=== PATIENT | male | born 1970 ===

== ENCOUNTER 2025-07-02 10:12 | Outpatient (AMB) | payer MEDICARE, MEDICAID, SELFPAY ==
--- NOTE | 2025-07-02 10:00 | A.OFFPC_ITS ---
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 Seasoning Mixer Required: No Accompanied by: Self / Same As Patient Allergies No Known Allergies Allergy (Verified 07/02/25 10:00) Medication List - Last Reconciled 07/02/25 by Catrachito Hou MD omeprazole 20 mg PO BID simvastatin 40 mg PO BEDTIME Tobacco use date assessed: 07/02/25 Dental Screening Dental Screen Date: 07/02/25 Did you have a dental visit in the last 12 months?: Yes Did you have a dental problem in the last 6 months where you did not have access to dental care?: No Was dental information given to patient?: Patient has dentist HPI HPI Comments History of Present Illness Details History of Present Illness The patient is a 55-year-old male presenting for a general health check-up and establishing care Scoliosis: - The patient reports having scoliosis b ut has not received treatment as it does not currently bother him. Earwax accumulation: - The patient has significant earwax acc umulation in the left ear, for which ear drops have been recommended. Abdominal hernia: - The patient has a history of an abdomi nal hernia, which was surgically repaired. Review of Systems - Musculoskeletal: Reports scoliosis, de nies current pain or discomfort. - Ears: Reports earwax accumulation in t he left ear. - Gastrointestinal: Denies current abdom inal pain, reports history of hernia repair. - Social: Denies smoking, occasional alc ohol consumption, denies drug use. 10-point ROS reviewed and negative excep t as noted in HPI Past Medical History - Scoliosis - Abdominal hernia repair Health Maintenance - Referral to visitor services associate for foot evalua tion - Referral to director phone for dietary g uidance - Blood tests ordered for general health assessment Physical Exam General: Well-appearing, in no acute distress. Vital signs: Within normal limits. HEENT: Normocephalic, atraumatic. PERRLA, EOMI. Conjunctiva clear, sclera anicteric. Oropharynx clear, mucous membranes moist. TMs intact bilaterally, but patient has significant earwax in the left ear. Neck: Supple, no lymphadenopathy, no thyromegaly, no JVD or carotid bruits. Cardiovascular: RRR, normal S1/S2, no murmurs, rubs, or gallops. Peripheral pulses 2+ and symmetric. No edema. Respiratory: Lungs clear to auscultation bilaterally, no wheezes, rales, or rhonchi. Normal effort. Abdomen: Soft, non-tender, non-distended. Normoactive bowel sounds. No hepatosplenomegaly, no masses. History of abdominal hernia surgery. MSK: Full range of motion, no joint swelling or deformity. Normal gait. Patient reports scoliosis but no current treatment. Skin: Warm, dry, intact. No rashes, lesions, or pallor. Neuro: Alert and oriented x3. Cranial nerves II-XII intact. Strength 5/5 throughout. Sensation intact. Reflexes 2+ symmetric. Normal coordination and gait. Psych: Appropriate mood and affect. Normal judgment and insight. Plan 1. Scoliosis - No immediate intervention required as the patient reports no current discomfort. 2. Earwax Accumulation - Prescribed ear drops to be used twice daily for the left ear, follow-up in two weeks to reassess. 3. Abdominal Hernia - No current issues reported, continue m onitoring for any symptoms. 4. Preventative Care - Blood tests ordered to assess overall health status. - Referrals provided for podiatry and nu tritionist consultations. Discussion Notes I discussed with the patient the importance of addressing the earwax accumulation with prescribed ear drops and the need for follow-up in two weeks. We also talked about the referrals to a visitor services associate and director phone to support his overall health maintenance. Blood tests were ordered to evaluate his general health status. Patient was informed and verbally consented to the use of an ambient scribe for clinic note documentation during this visit. Patient Instructions - Use ear drops in the left ear twice da junior. - Schedule and attend appointments with the visitor services associate and director phone. - Return for follow-up in two weeks for ear examination. - Complete blood tests as ordered. [facility] Medical History (Updated 07/02/25 @ 10:35 by Catrachito Hou MD) Overlapping toe Diabetes type 2 Family History (Updated 07/02/25 @ 10:21 by Crystal Flores MA) Father No problems noted. Mother Diabetes Alzheimer dementia Social History (Updated 07/02/25 @ 10:02 by Crystal Flores MA) Housing: Apartment Alcohol intake: current Alcohol intake frequency: does not drink Patient Tobacco Use Status: Never used Tobacco service: No Current occupational status: disabled Cognitive needs: No Hearing needs: No Vision needs: Yes (rx glasses) Questionnaire PHQ-9 Over the last 2 weeks, how often have you been bothered by any of the following problems? 1. Little interest or pleasure in doing things: not at all 2. Feeling down, depressed, or hopeless: not at all 3. Trouble falling or staying asleep, or sleeping too much: not at all 4. Feeling tired or having little energy: not at all 5. Poor appetite or overeating: not at all 6. Feeling bad about yourself - or that you are a failure or have let yourself or your family down: not at all 7. Trouble concentrating on things, such as reading the newspaper or watching television: not at all 8. Moving or speaking so slowly that other people could have noticed. Or the opposite - being so fidgety or restless that you have been moving around a lot more than usual: not at all 9. Thoughts that you would be better off or of hurting yourself in some way: not at all Total score: 0 Source: Developed by Drs. Jase Burgos, Marietta Cantu, Gus Bhagat and colleagues, with an educational ciara from [employer]. Thrive Questionnaire Date Thrive assessed: 07/02/25 I am a: Patient What is your living situation today?: I have a steady place to live Within the past 12 months, did the food you bought not last and you didn't have the money to get more?: Never true Within the past 12 months, did you worry whether your food would run out before you got money to buy more?: Never true Do you have trouble paying for medicines?: No Do you have trouble getting transportation to medical appointments?: No Do you have trouble paying your heating and electricity bill?: No Do you have trouble taking care of your child, family member or friend?: No Do you have trouble with day-to-day activities such as bathing, preparing meals, shopping, managing finances, etc.?: No Are you currently unemployed and looking for a job?: No Are you interested in more education?: No Please select the resources that you would like help with: None Currently or been in a relationship where the following occur: No concerns reported THRIVE Score: 0 AUDIT C Alcohol Use Questionnaire (AUDIT-C) 1. How often do you have a drink containing alcohol?: Never 3. How often do you have six or more drinks on one occasion?: Never Total Score: 0 PARUL-7 AMB Questionnaire PARUL-7 Date PARUL - 7 assessed: 07/02/25 Feeling nervous, anxious, or on edge: 0 = Not at all Not being able to stop or control worryin = Not at all Worrying too much about different things: 0 = Not at all Trouble relaxin = Not at all Being so restless that it is hard to sit still: 0 = Not at all Becoming easily annoyed or irritable: 0 = Not at all Feeling afraid as if something awful might happen: 0 = Not at all Total PARUL-7 score (0-4 normal; 5-9 mild; 10-14 moderate; 15-21 severe): 0 Source: Developed by Drs. Jase Burgos, Marietta Cantu, Gus Bhagat and colleagues, with an educational ciara from [employer]. Physical exam (Primary Care) Tobacco/Smoking Status: Tobacco use Status Tobacco use date assessed 07/02/25 07/02/25 10:02 Patient Tobacco Use Status Never used Tobacco 07/02/25 10:02 Thrive Assessment: Date of Thrive Assessment Date Thrive assessed 07/02/25 07/02/25 10:13 Currently or been in a relationship where the following occur: No concerns reported Coding Level of Care Code New Pt Level 3 (19802) Diagnoses Encounter to establish care Z76.89 Encounter for screening, unspecified Z13.9 Counseling, unspecified Z71.9 Screening for diabetes mellitus Z13.1 Screening for lipoid disorders Z13.220 Screening for hypertension Z13.6 Screening for depression Z13.31 Routine screening for STI (sexually transmitted infection) Z11.3 Screening for HIV (human immunodeficiency virus) Z11.4 Elevated blood pressure reading R03.0 Class 1 obesity E66.811 Overlapping toe M20.5X9 Cerumen impaction H61.20 Assessment & Plan Assessment & Plan (1) Encounter to establish care: Code(s): Z76.89 - Persons encountering health services in other specified circumstances (2) Encounter for screening, unspecified: Code(s): Z13.9 - Encounter for screening, unspecified (3) Counseling, unspecified: Code(s): Z71.9 - Counseling, unspecified (4) Screening for diabetes mellitus: Code(s): Z13.1 - Encounter for screening for diabetes mellitus (5) Screening for lipoid disorders: Code(s): Z13.220 - Encounter for screening for lipoid disorders (6) Screening for hypertension: Code(s): Z13.6 - Encounter for screening for cardiovascular disorders (7) Screening for depression: Code(s): Z13.31 - Encounter for screening for depression (8) Routine screening for STI (sexually transmitted infection): Code(s): Z11.3 - Encounter for screening for infections with a predominantly sexual mode of transmission (9) Screening for HIV (human immunodeficiency virus): Code(s): Z11.4 - Encounter for screening for human immunodeficiency virus [HIV] (10) Elevated blood pressure reading: Code(s): R03.0 - Elevated blood-pressure reading, without diagnosis of hypertension (11) Class 1 obesity: Code(s): E66.811 - Obesity, class 1 (12) Overlapping toe: Code(s): M20.5X9 - Other deformities of toe(s) (acquired), unspecified foot Category: Medical (13) Cerumen impaction: Code(s): H61.20 - Impacted cerumen, unspecified ear Plan Orders: Orders Comprehensive Met. Panel Today Z13.9 - Encounter for screening, unspecified, Z76.89 - Persons encountering health services in other specified circumstances Hepatitis C Antibody Today Z13.9 - Encounter for screening, unspecified, Z76.89 - Persons encountering health services in other specified circumstances Vitamin B12 and Folate Today Z13.9 - Encounter for screening, unspecified, Z76.89 - Persons encountering health services in other specified circumstances Vitamin D 1,25 dihydroxy Today Z13.9 - Encounter for screening, unspecified, Z76.89 - Persons encountering health services in other specified circumstances Microalbumin, Random (w Creat) Today Z13.9 - Encounter for screening, unspecified, Z76.89 - Persons encountering health services in other specified circumstances Chlamydia Species Ab Panel Today Z13.9 - Encounter for screening, unspecified, Z76.89 - Persons encountering health services in other specified circumstances Complete Blood Count Auto Diff Today Z13.9 - Encounter for screening, unspecified, Z76.89 - Persons encountering health services in other specified circumstances Hemoglobin A1c Today Z13.9 - Encounter for screening, unspecified, Z76.89 - Persons encountering health services in other specified circumstances Hepatitis B Surface Antibody Today Z13.9 - Encounter for screening, unspecified, Z76.89 - Persons encountering health services in other specified circumstances Hepatitis B Surface Antigen Today Z13.9 - Encounter for screening, unspecified, Z76.89 - Persons encountering health services in other specified circumstances HIV Ab/Ag Today Z13.9 - Encounter for screening, unspecified, Z76.89 - Persons encountering health services in other specified circumstances Lipid Panel Today Z13.9 - Encounter for screening, unspecified, Z76.89 - Persons encountering health services in other specified circumstances Magnesium Today Z13.9 - Encounter for screening, unspecified, Z76.89 - Persons encountering health services in other specified circumstances UA CC w/rflx Micro + Cult Today Z13.9 - Encounter for screening, unspecified, Z76.89 - Persons encountering health services in other specified circumstances CT NG by PCR Urine Today Z13.9 - Encounter for screening, unspecified, Z76.89 - Persons encountering health services in other specified circumstances Syphilis Screen Today Z13.9 - Encounter for screening, unspecified, Z76.89 - Persons encountering health services in other specified circumstances Referrals Nurse Navigator Referral E11.9 - Type 2 diabetes mellitus without complications, Z13.9 - Encounter for screening, unspecified Ophthalmology Referral E11.9 - Type 2 diabetes mellitus without complications, Z13.9 - Encounter for screening, unspecified Nutrition/Dietitian Referral E66.811 - Obesity, class 1 Podiatry Referral M20.5X9 - Other deformities of toe(s) (acquired), unspecified foot Nutrition/Dietitian Referral E11.9 - Type 2 diabetes mellitus without complications, Z13.9 - Encounter for screening, unspecified Medications: New carbamide peroxide 6.5% (Debrox) 5 drps otic (ears) Q12H 15 mL 0RF 4 days
[2025-07-02 10:16] VITALS: BP 136/86; PULSE 83; RESP 16; TEMP 36.6; O2SAT 98; BMI 31.1
--- OUTSIDE RECORDS SUMMARY | 2025-07-02 11:37 | XMS_ITS | Clinical Summary ---
Author Organization [facility] Address [address] [place] [address] Care Team Providers Care Audit Specialist Name Role Phone Toro Hernandez MD Primary Care Provider Unavaila ble Social History Tobacco Use Types Packs/Day Years Used Date Smoking Tobacco: Never Smokeless Tobacco: Never Alcohol Use Standard Drinks/Week Comments Yes 0 (1 standard drink = 0.6 oz pur e alcohol) Sex and Gender Information Value Date Recorded Sex Assigned at Not on file Legal Sex Male 7:32 PM EST Gender Identity Not on file Sexual Orientation Not on file Obstetrics History Last Filed Vital Signs Vital Sign Reading Time Taken Comments Blood Pressure 112/77 08/20/2023 8:11 AM EST Pulse 85 08/20/2023 8:11 AM EST Temperature - - Respiratory Rate - - Oxygen Saturation - - Inhaled Oxygen Concentration - - Weight 81.6 kg (179 lb 12.8 oz) 08/20/2023 8:11 AM EST Height 167.6 cm (5' 6 ) 08/20/2023 8:11 AM EST Body Mass Index 29.02 08/20/2023 8:11 AM EST Plan of Treatment Health Maintenance Due Date Last Done Comments Colorectal Cancer Screening: Colonoscopy 1969 DTaP,Tdap,and Td Vaccines (1 - Tdap) 1988 Hepatitis B Vaccines (1 of 3 - 19+ 3-dose series) 1988 Pneumococcal Vaccine: 50+ Ye ars (1 of 1 - PCV) 2019 Zoster Vaccines (1 of 2) 2019 Cholesterol Screening (Lipid Panel) 09/02/2022 HIV Screening 09/02/2022 Hepatitis C Screening 09/02/2022 Social Influencers of Health Screening 09/02/2022 Depression Screening 10/01/2024 COVID-19 Vaccine (1 - 4-2 5 season) 2025 Influenza Vaccine (#1) 2025 RSV Immunization Adult Patie nts (1 - 1-dose 75+ series) 2044 HIB Vaccines Aged Out No longer eligi ble based on patient's age to complete this topic HPV Vaccines Aged Out No longer eligi ble based on patient's age to complete this topic Hepatitis A Vaccines Aged Out No long er eligible based on patient's age to complete this topic IPV Vaccines Aged Out No longer eligi ble based on patient's age to complete this topic MMR Vaccines Aged Out No longer eligi ble based on patient's age to complete this topic Meningococcal ACWY Vaccine Aged Out N o longer eligible based on patient's age to complete this topic Meningococcal B Vaccine Aged Out No l onger eligible based on patient's age to complete this topic RSV Immunization Patients Un juan 20 months Aged Out No longer eligible b ased on patient's age to complete this topic Varicella Vaccines Aged Out No longer eligible based on patient's age to complete this topic Care Teams Audit Specialist Relationship Specialty Start Date End Date Toro Hernandez MD PCP - General 10/07/03
== END 2025-07-02 10:42 | disposition home or self-care (01) ==
LOC: HO.HMCFMS 10:13
PROVIDERS: PCP Student in an Organized Health Care Education/Training Program; Visit Provider Student in an Organized Health Care Education/Training Program
DX: H61.22 Impacted cerumen, left ear (principal); E66.811 Obesity, class 1; Z68.31 Body mass index [BMI] 31.0-31.9, adult; M20.5X9 Other deformities of toe(s) (acquired), unspecified foot

== ENCOUNTER → 2025-07-02 10:12 | Outpatient (BNVA) | payer MEDICARE, MEDICAID, SELFPAY | PROVIDERS: Visit Provider Student in an Organized Health Care Education/Training Program | DX: Z76.89 Persons encountering health services in other specified circumstances (principal); R03.0 Elevated blood-pressure reading, without diagnosis of hypertension; E66.811 Obesity, class 1; Z68.31 Body mass index [BMI] 31.0-31.9, adult; M20.5X9 Other deformities of toe(s) (acquired), unspecified foot; H61.22 Impacted cerumen, left ear; M41.9 Scoliosis, unspecified; E11.9 Type 2 diabetes mellitus without complications; Z71.9 Counseling, unspecified; Z13.30 Encounter for screening examination for mental health and behavioral disorders, unspecified; Z13.39 Encounter for screening examination for other mental health and behavioral disorders | CPT/HCPCS: 96127; 99202 ==

== ENCOUNTER 2025-07-03 11:40 | Outpatient (REF) | payer MEDICARE, MEDICAID, SELFPAY ==
--- OUTSIDE RECORDS SUMMARY | 2025-07-03 12:50 | XMS_ITS | Clinical Summary ---
[facility] Organization [facility] [address] [place] [address] Care Team Providers Care Maintenance Journeyman Name Role Phone Toro Hernandez MD Primary [...] age to complete this topic Care Teams Maintenance Journeyman Relationship Specialty Start Date End Date Toro Hernandez MD PCP - General 10/07/03
--- OUTSIDE RECORDS SUMMARY | 2025-07-03 12:50 | XMS_ITS | Clinical Summary ---
Author Organization [facility] Address [address] [place] [address] Care Team Providers Care Industrial Truck Operator Name Role Phone Laurel Hawkins PA-C Primary Care Provider [phone]- [phone] Source Comments PLEASE NOTE, if this patient is a minor, it may be UNLAWFUL to discuss sensitive information that is contained in these records (such as FAMILY PLANNING, MENTAL HEALTH or SUBSTANCE ABUSE) with the minor patient's parent or other person without the patient's specific authorization.[facility] Allergies No known active allergies Medications omeprazole (PRILOSEC) [address] capsuleIndicati ons:Dyspepsia TAKE 1 CAPSULE BY MOUTH TWICE A DAY 180 Capsule 1 03/02/2025 Active simvastatin (ZOCOR) 40 mg tabletIndicatio ns:Dyslipidemia TAKE 1 TABLET BY MOUTH EVERYDAY AT BEDTIME 90 Tablet 1 03/02/2025 Active Active Problems Problem Noted Date Diagnosed Date Retained ureteral stent 01/04/2019 Overview (01/04/2019): 01/01/19 Presented to [facility] OR With right sujit pain and stone in proximal right ureter Right renal mass 09/10/2018 Overview (09/10/2018): Found on CT of abdomen done on 08/04/18 - 1.8cm indeterminate right renal mass - needs u/s to follow up Acute appendicitis 02/01/2018 Overview (02/07/2018): [facility] to [facility] on 01/27/2018: Pre op done on 01/27/2018: going to operating room for possible appendectomy and hernia repair. Has some fluid collection after surgery. Cant exclude infection. Benign non-nodular prostatic hyperplasia with lower urinary tract symptoms 11/14/2015 Overview (11/14/2015): Seen by [facility] group of [facility] Dr Dominick Segovia GERD (gastroesophageal reflux disease) Vitamin D deficiency Diverticulitis Immunizations Immunization Administration Dates Next Due Flu, Preservative Free 10/03/2018,07/02/2017, INFLUENZA, SEASONAL, INJECTABLE 07/02/2017 TDAP 09/22/2016 Family History Medical History Relation Name Comments Diabetes Maternal Uncle Diabetes Mother Relation Name Status Comments Father Alive Maternal Uncle Mother Alive Social History Tobacco Use Types Packs/Day Years Used Date Smoking Tobacco: Never Smokeless Tobacco: Never Alcohol Use Standard Drinks/Week Comments Yes 8.3 (1 standard drink = 0.6 oz p ure alcohol) ocasional Social Connections Answer Date Recorded Connectedness 0 06/18/2024 Financial Resource Strain Answer Date R ecorded Financial Resource Strain 0 2018 Stress Answer Date Recorded Stress 0 05/24/2019 Physical Activity Answer Date Recorded Physical Activity 0 05/24/2019 Food Insecurity Answer Date Recorded Food 0 06/26/2024 Transportation Needs Answer Date Record ed Transportation 0 05/24/2019 Housing Stability Answer Date Recorded Housing 0 05/24/2019 Safety and Environment Answer Date Yeison rded Safety 0 05/24/2019 Utilities Answer Date Recorded Utilities 0 05/24/2019 Employment Answer Date Recorded Stress 0 06/18/2024 Sex and Gender Information Value Date Recorded Sex Assigned at Male 10/03/2018 12:06 PM PST Legal Sex Male 11:36 AM PDT Gender Identity Male 10/03/2018 12:06 PM PST Sexual Orientation Straight 10/03/2018 12 :06 PM PST Last Filed Vital Signs Vital Sign Reading Time Taken Comments Blood Pressure 132/70 10/03/2018 3:05 PM EST Pulse 76 10/03/2018 3:05 PM EST Temperature 36.8 C (98.3 F) 10/03/2018 3:05 PM EST Respiratory Rate 16 10/03/2018 3:05 PM EST Oxygen Saturation 96% 01/06/2016 3:55 PM EDT Inhaled Oxygen Concentration - - Weight 72.6 kg (160 lb) 10/03/2018 3:05 PM EST Height 170 cm (5' 6.93 ) 10/03/2018 3:05 PM EST Body Mass Index 25.11 10/03/2018 3:05 PM EST Plan of Treatment Health Maintenance Due Date Last Done Comments Anxiety Screening 1969 Hepatitis C Screening 1969 Tobacco Screening 1969 Medicare Annual Wellness Visit 1987 Imm-Hepatitis B (1 of 3 - 19 + 3-dose series) 1988 CT Colonography 2014 Colonoscopy 2014 Colorectal Cancer Screening 2014 FIT/gFOBT 2014 Fecal DNA 2014 Flexible Sigmoidoscopy 2014 Imm-Pneumococcal 50+ (1 of 1 - PCV) 2019 Imm-Zoster, Recombinant (1 of 2) 2019 Hypertension Screening (#1) 10/03/2019 10/03/2018 Lipid Screening 10/03/2019 10/03/2018, 06/0 06/2016, 11/03/2015, Additional history exists Diabetes Screening 10/03/2021 10/03/2018, 0 10/03/2018, 11/03/2015, Additional history exists Alcohol and Drug Screen 10/01/2024 10/03/19 19, 10/03/2018, 11/02/2015, Additional history exists Depression Annual Screen 10/01/2024 019, 11/02/2015, 05/21/2014 (Declined) [id number] ( season) 2025 021 Imm-Influenza (#1) 2025 10/03/2018, 1 , 07/02/2017, Additional history exists Imm-DTaP/Tdap/Td (2 - Td or Tdap) 09/22/2026 016 HIV Screening Completed 10/03/2018 Procedures Procedure Name Priority Date/Time Associated Diagnosis Comments ANTIBODY HIV-1&HIV-2 SINGLE RESULT Routine 10/03/2018 4:06 PM EST Encounter for general adult medical examination with abnormal findings COMPREHENSIVE METABOLIC PANEL Routine 10/03/2018 4:06 PM EST Encounter for general adult medical examination with abnormal findings LIPID PANEL Routine 10/03/2018 4:06 PM EST Encounter for general adult medical examination with abnormal findings from Last 3 Months or Most Recently Relevant to Health Maintenance Results * HIV-1 & HIV-2 ANTIBODIES (10/03/2018 4:06 PM EST) Pathologist [facility] HIV 1 AND 2 ANTIBODY SCREEN NEGATIVE NEGATIVE [facility] Comment: This assay is a 4th generation assay allowing for earlier detection of HIV infection by detecting the presence of the HIV-1 p24 antigen as well as the traditional antibodies to HIV type 1 (including group O) and type 2. Use of a 4th generation assay is the current CDC recommendation for HIV screening. Blood specimen (specimen) Blood / Unknown 10/03/2018 4:06 PM EST 10/03/2018 4:11 PM EST [facility] - 10/03/2018 8:39 PM JO ANN [employer], [place] [address] Cereal Miller - Sara Gutierrez MD [place] [id number] ORD# [id number] Og Downs PA-C LAB - [place] [address], * (ABNORMAL) LIPID PANEL (10/03/2018 4:06 PM EST) [facility] CHOLESTEROL 184 0 - 200 mg/dL [facility] TRIGLYCERIDES 109 0 - 150 mg/dL [facility] HDL CHOLESTEROL 39(L) >40 mg/dL [facility] LDL CALCULATED 124(H) 0 - 100 mg/dL [facility] TC-HDLC RATIO 4.7(H) 0 - 4.4 mg/dL [facility] Blood specimen (specimen) Blood / Unknown 10/03/2018 4:06 PM EST 10/03/2018 4:11 PM EST [facility] - 10/03/2018 7:50 PM EST [employer], a member of [address] [address] Cereal Miller - Sara Gutierrez MD PT ID [id number] ORD# [id number] Og Yareli PANG LAB - BLOOD DRAW Final Result [facility] [address] [place] [address], * COMPRE METAB PANEL (CMP) (10/03/2018 4:06 PM EST) GLUCOSE 93 70 - 100 mg/dL [facility] Comment:Reference range appl icable to fasting specimens only BUN 16 5 - 25 mg/dL [facility] CREAT 0.76 0.7 - 1.3 mg/dL [facility] GLOMERULAR FILTRATION RATE > 60 [facility] Comment: If patient is -Ugandan, multiply result by 1.21 Chronic Kidney Disease: < 60 ml/min/1.73 square meters Kidney Failure: < 15 ml/min/1.73 square meters SODIUM 141 133 - 145 mmol/L [facility] POTASSIUM 3.6 3.5 - 5.5 mmol/L [facility] CHLORIDE 109 96 - 110 mmol/L [facility] CO2 24 21 - 32 mmol/L [facility] ANION GAP 8 3 - 11 [facility] CALCIUM 8.9 8.5 - 10.5 mg/dL [facility] TOTAL PROTEIN 7.9 6.0 - 8.0 G/dL [facility] ALBUMIN 3.9 3.2 - 5.0 G/dL [facility] BILI, TOTAL 0.5 0.0 - 1.4 mg/dL [facility] SGOT 12 10 - 42 U/L [facility] SGPT 29 10 - 60 U/L [facility] ALK PHOS 93 42 - 121 U/L [facility] Blood specimen (specimen) Blood / Unknown 10/03/2018 4:06 PM EST 10/03/2018 4:11 PM EST Narrative [facility] - 10/03/2018 7:50 PM EST [employer], a member of [address] [address] Cereal Miller - Sara Gutierrez MD [place] [id number] ORD# [id number] Og Downs PA-C LAB - BLOOD DRAW Final Result Performing Organization Address City/State/[facility] Co de Phone Number [facility] [address] [place] [address], from Last 3 Months or Most Recently Relevant to Health Maintenance [place] Care Teams Industrial Truck Operator Relationship Specialty Start Date End Date Laurel Hawkins PA-C [address] [place] [address] PCP - General Internal Medicine 07/19/21
[2025-07-03 18:27] LABS: MANUAL DIFF FLAG NO
[2025-07-03 18:42] LABS: Hematocrit 44.0 % (42.0-52.0); Hemoglobin 14.7 g/dl (14.0-18.0); Imm Gran Abs Auto 0.01 X10*3/uL (0.00-0.03); Imm Gran Pct Auto 0.2 % (0.0-0.4); Lymphocytes Absolute Auto 2.2 X10*3/uL (1.2-4.9); Mean Corpuscular HGB Conc 33.4 g/dl (31.0-36.0); Mean Corpuscular Hemoglobin 29.6 pg (27.0-33.0); Mean Corpuscular Volume 88.5 fL (80.0-98.0); NRBC Abs Auto 0.000 X10*3/uL (0.0-0.012); NRBC Pct Auto 0.0 /100WBC (0.0-0.2); Platelet Count 167 X10*3/uL (160-400); Red Blood Count 4.97 X10*6/uL (4.60-5.80); White Blood Count 6.5 X10*3/uL (4.8-10.8)
[2025-07-03 18:43] LABS: Alanine Aminotransferase 36 U/L (0-40); Albumin Level 4.2 g/dL (3.5-5.0); Alkaline Phosphatase 84 U/L (39-117); Anion Gap 12 (12-20); Aspartate Amino Transferase 31 U/L (5-37); Blood Urea Nitrogen 14 mg/dL (9-16); Calcium 9.0 mg/dL (8.4-10.2); Carbon Dioxide 23 mmol/L (22-29); Chloride 110 mmol/L (96-108); Cholesterol 129 mg/dL (<200); Estimated Glomerular Filt Rate > 60; HDL Cholesterol 36 mg/dL (>40); Magnesium 2.3 mg/dL (1.6-2.6); Potassium 3.9 mmol/L (3.3-5.1); Sodium 141 mmol/L (135-145); Total Protein 7.7 g/dL (6.5-8.0); Triglycerides 105 mg/dL (<150)
[2025-07-03 19:19] LABS: Folate 9.0 ng/mL (> or = 4.0); Vitamin B12 200 pg/mL (200-900)
[2025-07-04 03:57] LABS: Syphilis Screen Nonreactive (Nonreactive)
[2025-07-04 04:25] LABS: HBS Num1 1.15 mIU/mL (0-7.99); HBsAGNum1 0.33 S/CO (0.00-0.99); HIV Num 1 0.06 S/CO (0.00-0.99); Hepatitis B Surface Antigen Negative (Negative); ~HepC Num1 0.14 S/CO (0.00-0.79); ~Hepatitis B Surface Antibody NONREACTIVE (Nonreactive); ~Hepatitis C Antibody Nonreactive (Nonreactive)
[2025-07-10 13:48] LABS: VITAMIN D (1,25 OH) D3 64 pg/mL; Vit D (1,25-Dihydroxy) Total 64 pg/mL (18-72); Vitamin D (1,25 OH) D2 <8 pg/mL
[2025-07-12 07:28] LABS: Chlamydia Trachomatis IgA <1:16 titer (<1:16)
== END 2025-07-03 11:41 | disposition home or self-care (01) ==
LOC: HO.HKASLDS 11:40
PROVIDERS: PCP Student in an Organized Health Care Education/Training Program; Visit Provider Student in an Organized Health Care Education/Training Program
DX: Z76.89 Persons encountering health services in other specified circumstances (principal); Z13.89 Encounter for screening for other disorder; Z11.4 Encounter for screening for human immunodeficiency virus [HIV]; Z20.2 Contact with and (suspected) exposure to infections with a predominantly sexual mode of transmission; Z13.1 Encounter for screening for diabetes mellitus; Z13.6 Encounter for screening for cardiovascular disorders; Z01.84 Encounter for antibody response examination
CPT/HCPCS: 36415; 80053; 80061; 82607; 82652; 82746; 83036; 83735; 85025; 86631; 86632; 86706; 86780; 86803; 87340; 87389

== ENCOUNTER 2025-07-16 13:09 | Outpatient (AMB) | payer MEDICARE, MEDICAID, SELFPAY ==
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
[2025-07-16 13:15] VITALS: BP 139/85; PULSE 85; RESP 16; TEMP 36.8; O2SAT 92; BMI 31.3
--- OUTSIDE RECORDS SUMMARY | 2025-07-16 16:28 | XMS_ITS | Clinical Summary ---
Author Organization [facility] ity Address [address] [place] [address] Care Team Providers Care Cold Press Operator Name Role Phone Toro Hernandez MD Primary [...] age to complete this topic Care Teams Cold Press Operator Relationship Specialty Start Date End Date Toro Hernandez MD PCP - General 10/07/03
== END 2025-07-16 13:41 | disposition home or self-care (01) ==
LOC: HO.HMCFMS 13:10
PROVIDERS: PCP Student in an Organized Health Care Education/Training Program; Visit Provider Student in an Organized Health Care Education/Training Program
DX: E78.6 Lipoprotein deficiency (principal); E53.8 Deficiency of other specified B group vitamins

== ENCOUNTER → 2025-07-16 13:09 | Outpatient (BNVA) | payer MEDICARE, MEDICAID, SELFPAY | PROVIDERS: Visit Provider Student in an Organized Health Care Education/Training Program | DX: E78.6 Lipoprotein deficiency (principal); E53.8 Deficiency of other specified B group vitamins; Z13.30 Encounter for screening examination for mental health and behavioral disorders, unspecified; Z13.39 Encounter for screening examination for other mental health and behavioral disorders | CPT/HCPCS: 96127; 99212 ==

== ENCOUNTER 2025-07-30 12:26 | Outpatient (AMB) | payer MEDICARE, MEDICAID, SELFPAY ==
[2025-07-30 12:56] VITALS: BP 142/78; PULSE 90; TEMP 36.6; O2SAT 97
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
--- OUTSIDE RECORDS SUMMARY | 2025-07-30 15:18 | XMS_ITS | Clinical Summary ---
[facility] Organization [facility] Address [address] [place] [address] Care Team Providers Care Operations Officer Afloat Name Role Phone Toro Hernandez MD Primary [...] age to complete this topic Care Teams Operations Officer Afloat Relationship Specialty Start Date End Date Toro Hernandez MD PCP - General 10/07/03
== END 2025-07-30 13:40 | disposition home or self-care (01) ==
LOC: HO.HMCFMS 12:27
PROVIDERS: PCP Student in an Organized Health Care Education/Training Program; Visit Provider Student in an Organized Health Care Education/Training Program
DX: Z23 Encounter for immunization (principal); H61.22 Impacted cerumen, left ear

== ENCOUNTER → 2025-07-30 12:26 | Outpatient (BNVA) | payer MEDICARE, MEDICAID, SELFPAY | PROVIDERS: Visit Provider Student in an Organized Health Care Education/Training Program | DX: H61.22 Impacted cerumen, left ear (principal); Z28.21 Immunization not carried out because of patient refusal; Z13.39 Encounter for screening examination for other mental health and behavioral disorders | CPT/HCPCS: 90471; 96127; 99212 ==

== ENCOUNTER 2025-08-13 13:52 | Outpatient (AMB) | payer MEDICARE, MEDICAID, SELFPAY ==
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
[2025-08-13 14:04] VITALS: BP 127/76; PULSE 84; RESP 20; TEMP 36.6; O2SAT 98; BMI 31.3
--- OUTSIDE RECORDS SUMMARY | 2025-08-13 17:15 | XMS_ITS | Clinical Summary ---
Author Organization [facility] Address [address] [place] [address] Care Team Providers Care Fiction And Nonfiction Author Name Role Phone Toro Hernandez MD Primary [...] Depression Screening 10/01/2024 COVID-19 Vaccine (1 - 5-2 6 season) 2025 Influenza Vaccine (#1) 2025 RSV [...] age to complete this topic Care Teams Fiction And Nonfiction Author Relationship Specialty Start Date End Date Toro Hernandez MD PCP - General 10/07/03
== END 2025-08-13 14:36 | disposition home or self-care (01) ==
LOC: HO.HMCFMS 13:53
PROVIDERS: Visit Provider Student in an Organized Health Care Education/Training Program
DX: H61.22 Impacted cerumen, left ear (principal)

== ENCOUNTER → 2025-08-13 13:52 | Outpatient (BNVA) | payer MEDICARE, MEDICAID, SELFPAY | PROVIDERS: Visit Provider Student in an Organized Health Care Education/Training Program | DX: H61.22 Impacted cerumen, left ear (principal); Z13.30 Encounter for screening examination for mental health and behavioral disorders, unspecified | CPT/HCPCS: 69209; 99211; 99212 ==

== ENCOUNTER 2025-08-20 15:05 | Outpatient (AMB) | payer MEDICARE, MEDICAID, SELFPAY ==
[2025-08-20 15:22] VITALS: BMI 32.1
--- NOTE | 2025-08-20 15:22 | A.OFFVIS_ITS ---
Vital Signs 08/20/25 15:22 Height 5 ft 6 in Weight 199 lb BMI 32.1 Intake Visit Reasons: deformity of toe Intake Note: Lex is a 55 year old male who presents today as a new patient for an evaluation of his toe deformity. Patient reports he has had previous surgical history in bilateral feet. He currently has bilateral hammertoes and states this has been an ongoing issue for about 30 years and he experiences occasional pain . Patients main concerns are in regards to his hammertoes and callous. Allergies No Known Allergies Allergy (Verified 08/20/25 15:23) HPI HPI deformity of toe: Details: 55-year-old male past medical history of diabetes mellitus type 2, vitamin B12 deficiency, presenting for right foot pain. He notes a callus in the bottom of the foot which she tries to shave on his own normally however he had bleeding last time and has not been able to treat it himself at this point. Also complains of elongated nails. The patient has a history of bilateral feet surgery proximally over 30 years ago. He states that the toe deformity has returned since then however does not typically bother him. He was given a brace in the past for both ankles however does not use them. [facility] Medical History (Updated 08/20/25 @ 15:40 by Red Simmons DPM) Impacted cerumen of left ear Overlapping toe Diabetes type 2 Family History Father No problems noted. Mother Diabetes Alzheimer dementia Social History (Updated 08/13/25 @ 14:04 by Chad Colvin CMA) Housing: Apartment Alcohol intake: current Alcohol intake frequency: does not drink Patient Tobacco Use Status: Never used Tobacco service: No Current occupational status: disabled Cognitive needs: No Hearing needs: No Vision needs: Yes (rx glasses) Review of Systems Const All systems reviewed & are unremarkable except as noted in HPI and below Physical Exam Vital Signs: BMI result Body Mass Index 32.1 Extrem Other: *Bilateral Lower Extremity Focused Exam Vascular: DP/PT 1/4, CFT less than 3 seconds all digits, temperature gradient to cool. No pedal edema. Derm: Hyperkeratotic lesion right foot sub 5th metatarsal head. Healed surgical incisions over the dorsal foot bilaterally. Neuro: Protective sensation diminished to lower extremities. MSK: Mild pain on palpation of the plantar aspect of the 5th metatarsal lesion right foot. Equinovarus deformity bilateral ankles, dorsiflexion strength 4+/5. Assessment & Plan Assessment & Plan (1) Equinovarus deformity, acquired: Code(s): M21.549 - Acquired clubfoot, unspecified foot Category: Medical Qualifiers: Laterality: right Qualified Code(s): M21.541 - Acquired clubfoot, right foot Plan: * Rx bilateral foot x-rays * Patient does not require any supportive devices or braces at this time due to equal symmetric gait. Denies any recent falls. (2) Metatarsalgia of both feet: Code(s): M77.41 - Metatarsalgia, right foot; M77.42 - Metatarsalgia, left foot Category: Medical Plan: * Rx bilateral foot x-rays (3) [place] of foot: Code(s): L84 - Corns and callosities Category: Medical Plan: * Debrided right foot lesion using a 15 blade. * Rx urea cream Orders: Orders AMB Debridement/[facility] Today L84 - Corns and callosities XR Foot Frankie 3V Today M20.5X9 - Other deformities of toe(s) (acquired), unspecified foot, M21.541 - Acquired clubfoot, right foot, M77.41 - Metatarsalgia, right foot, M77.42 - Metatarsalgia, left foot Coding Level of Care Code New Pt Level 4 (36418) Diagnoses Acquired equinovarus deformity of right foot M21.541 Laterality: right Metatarsalgia of both feet M77.41; M77.42 [place] of foot L84 Time Spent (min) 35
--- OUTSIDE RECORDS SUMMARY | 2025-08-20 20:27 | XMS_ITS | Clinical Summary ---
[facility] Address [address] [place] [address] Care Team Providers Care [employer] Teacher Name Role Phone Toro Hernandez MD Primary [...] age to complete this topic Care Teams [employer] Teacher Relationship Specialty Start Date End Date Toro Hernandez MD PCP - General 10/07/03
== END 2025-08-20 15:39 | disposition home or self-care (01) ==
LOC: HO.HPODS 15:07
PROVIDERS: PCP Student in an Organized Health Care Education/Training Program; Visit Provider Student in an Organized Health Care Education/Training Program
DX: M21.541 Acquired clubfoot, right foot (principal); M77.41 Metatarsalgia, right foot; M77.42 Metatarsalgia, left foot; L84 Corns and callosities
CPT/HCPCS: 99204

== ENCOUNTER → 2025-08-20 15:05 | Outpatient (BNVA) | payer MEDICARE, MEDICAID, SELFPAY | PROVIDERS: PCP Student in an Organized Health Care Education/Training Program; Visit Provider Student in an Organized Health Care Education/Training Program | DX: M21.541 Acquired clubfoot, right foot (principal); M77.41 Metatarsalgia, right foot; M77.42 Metatarsalgia, left foot; L84 Corns and callosities; E11.9 Type 2 diabetes mellitus without complications | CPT/HCPCS: 99202 ==

== ENCOUNTER 2025-09-21 13:44 | Outpatient (AMB) | payer MEDICARE, MEDICAID, SELFPAY ==
--- NOTE | 2025-09-21 14:19 | A.OFFVIS_ITS ---
Vital Signs 09/21/25 14:20 Height 5 ft 6 in Weight 199 lb BMI 32.1 Intake Visit Reasons: deformity of toe Intake Note: Lex is a 55 year old male who presents today for a follow up on on his corn of foot. AT his last visit bilateral X-rays were ordered, his right foot lesion was debrided, and he was prescribed urea cream. Patient reports he was unable to get X-rays done and he was unable to receive the cream due to insurance coverage issues. he report she still has callous at this time Allergies No Known Allergies Allergy (Verified 09/21/25 14:20) HPI HPI deformity of toe: Details: 55-year-old male past medical history of diabetes mellitus type 2, vitamin B12 deficiency, returns for right foot pain. He did not receive his x-rays, and states insurance did not cover the urea cream. He is still having pain to the bottom of his foot. History: He notes a callus in the bottom of the foot which she tries to shave on his own normally however he had bleeding last time and has not been able to treat it himself at this point. Also complains of elongated nails. The patient has a history of bilateral feet surgery proximally over 30 years ago. He states that the toe deformity has returned since then however does not typically bother him. He was given a brace in the past for both ankles however does not use them. [facility] Medical History (Updated 08/20/25 @ 15:40 by Red Simmons DPM) Impacted cerumen of left ear Overlapping toe Diabetes type 2 Family History Father No problems noted. Mother Diabetes Alzheimer dementia Social History (Updated 08/13/25 @ 14:04 by Chad Colvin CMA) Housing: Apartment Alcohol intake: current Alcohol intake frequency: does not drink Patient Tobacco Use Status: Never used Tobacco service: No Current occupational status: disabled Cognitive needs: No Hearing needs: No Vision needs: Yes (rx glasses) Review of Systems Const All systems reviewed & are unremarkable except as noted in HPI and below Physical Exam Vital Signs: BMI result Body Mass Index 32.1 Extrem Other: *Bilateral Lower Extremity Focused Exam Vascular: DP/PT 1/4, CFT less than 3 seconds all digits, temperature gradient to cool. No pedal edema. Derm: Hyperkeratotic lesion right foot sub 5th metatarsal head. Healed surgical incisions over the dorsal foot bilaterally. Neuro: Protective sensation diminished to lower extremities. MSK: Mild pain on palpation of the plantar aspect of the 5th metatarsal lesion right foot. Equinovarus deformity bilateral ankles, dorsiflexion strength 4+/5. Office Procedures AMB Debridement /Avulsion Details: Procedure: Callus debridement Location: 1 lesion, right foot Anesthesia: N/A Description: The affected area was cleansed with an antiseptic solution. Using a sterile #15 blade, the hyperkeratotic tissue was radially debrided from the foot. All callused tissue was removed down to normal skin without causing bleeding or discomfort. The area was inspected for underlying ulceration or infection. Patient tolerated the procedure well. No complications noted. Tolerance: Patient tolerated procedure well, no immediate complications. [id number] of Callus (1) Procedure code (CPT) selection complete Assessment & Plan Assessment & Plan (1) Equinovarus deformity, acquired: Code(s): M21.549 - Acquired clubfoot, unspecified foot Category: Medical Qualifiers: Laterality: right Qualified Code(s): M21.541 - Acquired clubfoot, right foot Plan: * Once again instructed patient to receive his bilateral foot x-rays * Patient does not require any supportive devices or braces at this time due to equal symmetric gait. Denies any recent falls. (2) Metatarsalgia of both feet: Code(s): M77.41 - Metatarsalgia, right foot; M77.42 - Metatarsalgia, left foot Category: Medical Plan: * Instructed patient to receive his bilateral foot x-rays (3) [place] of foot: Code(s): L84 - Corns and callosities Category: Medical Plan: * Debrided right foot lesion using a 15 blade. * Recommended [id number] urea cream 40% Coding Level of Care Code Est Pt Level 3 (47295) Diagnoses Acquired equinovarus deformity of right foot M21.541 Laterality: right Metatarsalgia of both feet M77.41; M77.42 [place] of foot L84
[2025-09-21 14:20] VITALS: BMI 32.1
--- OUTSIDE RECORDS SUMMARY | 2025-09-21 17:11 | XMS_ITS | Clinical Summary ---
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
== END 2025-09-21 14:48 | disposition home or self-care (01) ==
LOC: HO.HPODS 13:44
PROVIDERS: PCP Student in an Organized Health Care Education/Training Program; Visit Provider Student in an Organized Health Care Education/Training Program
DX: M21.541 Acquired clubfoot, right foot (principal); M77.41 Metatarsalgia, right foot; M77.42 Metatarsalgia, left foot; L84 Corns and callosities
CPT/HCPCS: 99213